=== PATIENT | male | born 1995 | race Two or more races ===

== ENCOUNTER 2024-02-19 12:44 | Emergency (ER) | payer OTHER ==
[2024-02-19 13:04] VITALS: BP 128/87; PULSE 64; RESP 16; O2SAT 100
[2024-02-19 13:30] LABS: Urine Bacteria None Seen /hpf (None Seen)
[2024-02-19 13:47] LABS: Urine Blood Negative /uL (Negative); Urine Clarity Clear (Clear); Urine Color Light-Yellow (Yellow); Urine Protein, UAD Negative (Negative); Urine Specific Gravity 1.019 (1.001-1.035); Urine Urobilinogen Normal (Negative); Urine WBC <1 /hpf (0 - 3); Urine pH 5.5 (5.0-9.0)
[2024-02-19 14:06] LABS: Basophils # (auto) 0 10 ^3/uL (0-0.2); Basophils % (auto) 0.3 % (0.0-2.0); Eosinophils # (auto) 0.3 10 ^3/uL (0-0.8); Eosinophils % (auto) 2.4 % (0.0-7.0); Hematocrit 49.3 % (41.0-53.0); Hemoglobin 16.8 g/dL (13.5-17.5); Lymphocytes # (auto) 1.1 10 ^3/uL (0.4-5.4); Lymphocytes % (auto) 7.6 % (10.0-50.0); Mean Corpuscular Hemoglobin 30.5 pg (28.0-32.0); Mean Corpuscular Hgb Conc. 34.1 g/dL (32.0-36.0); Mean Corpuscular Volume 89.6 fL (80.0-100.0); Monocytes # (auto) 0.9 10 ^3/uL (0-1.3); Monocytes % (auto) 5.9 % (0.0-12.0); Neutrophils # (auto) 12.2 10 ^3/uL (1.6-8.6); Neutrophils % (auto) 83.8 % (37.0-80.0); Platelet Count (auto) 384 10^3/uL (140-450); Red Blood Cells 5.51 10^6/uL (4.5-5.90); Red Cell Distribution Width 14.3 % (11.8-14.3); White Blood Cell 14.6 10^3/uL (4.4-10.8)
[2024-02-19] MEDS ORDERED: PANT40TA2 PO (14:06)
[2024-02-19 14:15] LABS: Chloride 106 mmol/L (98-107); Potassium 4.6 mmol/L (3.5-5.1); Sodium 139 mmol/L (136-145)
[2024-02-19 14:16] LABS: Anion Gap 6 (5-15); Calcium 10.8 mg/dL (8.7-10.4); Carbon Dioxide 27 mmol/L (20-31)
[2024-02-19 14:21] LABS: BUN/Creatinine Ratio 8.3 (10.0-20.0); Blood Urea Nitrogen 9 mg/dL (9-23); Glucose 107 mg/dL (74-106)
[2024-02-19] MEDS: PANTOPRAZOLE 40 MG/10 ML VIAL INJ IV ONE (16:30)
[2024-02-19] MEDS: SODIUM CHLORIDE 0.9% 1,000 ML IV ONE ×2 (16:30)
[2024-02-19] MEDS: metroNIDAZOLE 500MG/100ML 100 ML IV ONE (16:30)
[2024-02-19] MEDS ORDERED: METR-344 PO (17:06)
[2024-02-19] MEDS ORDERED: AMOX500C2 PO (17:06)
[2024-02-19] MEDS ORDERED: SODIUM CHLORIDE 0.9% 1,000 ML IV ONE (18:30)
== END 2024-02-19 17:12 | disposition left against medical advice (07) ==
LOC: ER 12:51
DX: R10.13 Epigastric pain (principal); K29.70 Gastritis, unspecified, without bleeding
CPT/HCPCS: 36415; 74176; 80048; 81001; 85025